=== PATIENT | female | born 1985 ===

== ENCOUNTER 2020-02-10 15:09 | Outpatient (REF) | payer MEDICAID, SELFPAY ==
[2020-02-14 08:22] LABS: SARS-CoV-2 RNA Not Detected (NotDetected); SARS-CoV-2 RNA Source Nasal/Nares
== END 2020-02-10 15:29 ==
LOC: NCHCN 15:09
PROVIDERS: Visit Provider Nurse Practitioner Family
DX: Z20.828 Contact with and (suspected) exposure to other viral communicable diseases (principal)
CPT/HCPCS: U0003

== ENCOUNTER 2020-02-14 22:22 | Outpatient (REF) | payer MEDICAID, SELFPAY ==
[2020-02-17 13:11] LABS: SARS-CoV-2 RNA Not Detected (NotDetected); SARS-CoV-2 RNA Source Nasal/Nares
== END 2020-02-14 22:42 ==
LOC: NCHCN 22:22
PROVIDERS: Visit Provider Nurse Practitioner Family
DX: Z20.828 Contact with and (suspected) exposure to other viral communicable diseases (principal)
CPT/HCPCS: U0003

== ENCOUNTER 2021-04-01 18:55 | Outpatient (REF) | payer SELFPAY ==
[2021-04-03 02:12] LABS: COVID-19 RT-PCR UVMMC Result Negative (Negative)
== END 2021-04-01 18:56 | disposition home or self-care (01) ==
LOC: NCHCN 18:55
PROVIDERS: PCP Nurse Practitioner Family; Visit Provider Nurse Practitioner Family
DX: Z20.822 Contact with and (suspected) exposure to COVID-19 (principal)
CPT/HCPCS: U0003